=== PATIENT | female | born 1980 | race Caucasian/White ===

== ENCOUNTER → 2017-10-19 | Outpatient (CLI) | payer OTHER ==
[~2017-10-19] MED LIST: ALBU.083IS INH; BENTYL10 MG PO; BENZ100A PO; BUPR100ER PO; CRANBERRY250 MG PO; DIVA250EC PO; ESTR2 PO; FLAX PO; FOLATE PO; HYDSUL200 PO; LEVFLO500 PO; LISI20 PO; METTREX2.5 PO; NASACORT10.8 ML; Nortriptyline H25 MG PO; PANT40 PO; PHENA200 PO; PROM25 PO; SIMV10 PO; Zanaflex4 M1 PO; [UNRECOGNIZED DRUG - OTHER] PO
== END | disposition home or self-care (01) ==
LOC: LAB 10:39
DX: J02.9 Acute pharyngitis, unspecified (principal)
CPT/HCPCS: 87081; 87430

== ENCOUNTER 2020-01-01 09:11 | Emergency (ER) | payer OTHER ==
[~2020-01-01] VITALS: Ht 175.3 cm; Wt 145.2 kg
[2020-01-01 09:53] LABS: BASOPHILS ABSOLUTE AUTO 0.08 K/mm3 (0.00-0.23); BASOPHILS PERCENT AUTO 1 % (0-2); EOSINOPHILS ABSOLUTE AUTO 0.51 K/mm3 (0.00-0.68); EOSINOPHILS PERCENT AUTO 6 % (0-6); Hematocrit 42.7 % (33.0-51.0); Hemoglobin 13.9 g/dL (11.5-16.0); IMMATURE GRAN ABSOLUTE AUTO 0.03 K/mm3 (0.00-0.10); IMMATURE GRAN PERCENT AUTO 0 % (0-1); LYMPHOCYTES ABSOLUTE AUTO 2.07 K/mm3 (0.84-5.20); LYMPHOCYTES PERCENT AUTO 25 % (21-46); MONOCYTES ABSOLUTE AUTO 0.58 K/mm3 (0.16-1.47); MONOCYTES PERCENT AUTO 7 % (4-13); Mean Corpuscular HGB Conc 32.6 g/dL (31.5-36.5); Mean Corpuscular Volume 83 fL (80-100); NEUTROPHILS ABSOLUTE AUTO 5.08 K/mm3 (1.96-9.15); NEUTROPHILS PERCENT AUTO 61 % (41-73); RDW Standard Deviation 39.3 fL (35.1-46.3); Red Blood Cell Count 5.15 M/mm3 (3.80-5.20); White Blood Cell Count 8.35 K/mm3 (4.00-11.30)
[2020-01-01 10:03] LABS: Mean Platelet Volume 11.3 fL (9.1-12.4); Platelet Count 165 K/mm3 (150-400)
[2020-01-01 10:14] LABS: Alanine Aminotransfer (ALT/SGP 24 U/L (12-78); Albumin, Blood 3.5 g/dL (3.4-5.0); Alk Phos 69 U/L (50-136); Anion Gap 8 mmol/L (6-16); Aspartate Aminotrans (AST/SGOT 15 U/L (12-37); Bilirubin, Total 0.2 mg/dL (0.1-1.0); Blood Urea Nitrogen 17 mg/dL (8-24); Bun/Creatinine Ratio 16.3 (12.0-20.0); CO2, Blood 26 mmol/L (21-32); Calcium, Blood 8.7 mg/dL (8.5-10.1); Chloride, Blood 104 mmol/L (98-108); Creatinine, Blood 1.04 mg/dL (0.40-1.00); Globulin, Blood 3.5 g/dL (2.2-4.0); Glomerular Filtration Rate >60 (60-); Glucose, Blood 101 mg/dL (70-99); Sodium, Blood 138 mmol/L (136-145)
[2020-01-01 10:16] LABS: Troponin I <0.015 ng/mL (0.000-0.040)
[2020-01-01] MEDS ORDERED: HYDR1TAB94 PO (12:16)
== END 2020-01-01 12:56 | disposition home or self-care (01) ==
LOC: ER 09:11
PROVIDERS: Physician Assistant
DX: R07.9 Chest pain, unspecified (principal); G43.909 Migraine, unspecified, not intractable, without status migrainosus; G47.30 Sleep apnea, unspecified; Z88.2 Allergy status to sulfonamides; Z88.8 Allergy status to other drugs, medicaments and biological substances; Z88.5 Allergy status to narcotic agent; Z79.899 Other long term (current) drug therapy; Z99.89 Dependence on other enabling machines and devices
CPT/HCPCS: 36415; 71046; 80053; 83880; 84484; 85025; 85651; 86140; 93005; 93010; 96374; 96375; 96376; 99285-25; J1885; J2550; J3010

== ENCOUNTER → 2022-04-19 | Outpatient (CLI) | payer OTHER ==
[~2022-04-19] MED LIST changes: +HYDR1TAB94 PO
== END | disposition home or self-care (01) ==
LOC: PLD 07:15 → LAB SHORT 07:15 → LAB 07:15
DX: D17.24 Benign lipomatous neoplasm of skin and subcutaneous tissue of left leg (principal)
CPT/HCPCS: 88305

== ENCOUNTER 2024-03-19 17:40 | Inpatient (IN) | payer OTHER ==
[~2024-03-19] VITALS: Ht 175.3 cm; Wt 159.0 kg
[2024-03-19 18:36] LABS: BASOPHILS ABSOLUTE AUTO 0.11 K/mm3 (0.00-0.23); BASOPHILS PERCENT AUTO 1 % (0-2); EOSINOPHILS ABSOLUTE AUTO 0.71 K/mm3 (0.00-0.68); EOSINOPHILS PERCENT AUTO 7 % (0-6); Hematocrit 45.1 % (33.0-51.0); IMMATURE GRAN ABSOLUTE AUTO 0.02 K/mm3 (0.00-0.10); IMMATURE GRAN PERCENT AUTO 0 % (0-1); LYMPHOCYTES ABSOLUTE AUTO 2.43 K/mm3 (0.84-5.20); LYMPHOCYTES PERCENT AUTO 24 % (21-46); MONOCYTES PERCENT AUTO 6 % (4-13); Mean Corpuscular HGB 27.3 pg (26.0-34.0); Mean Corpuscular HGB Conc 33.3 g/dL (31.5-36.5); Mean Corpuscular Volume 82 fL (80-100); Mean Platelet Volume 11.7 fL (9.1-12.4); NEUTROPHILS ABSOLUTE AUTO 6.36 K/mm3 (1.96-9.15); NEUTROPHILS PERCENT AUTO 62 % (41-73); Platelet Count 263 K/mm3 (150-400); RDW Coefficient Variation 13.5 % (11.7-14.2); RDW Standard Deviation 39.8 fL (35.1-46.3); White Blood Cell Count 10.23 K/mm3 (4.00-11.30)
[2024-03-19 19:04] LABS: Albumin, Blood 3.8 g/dL (3.4-5.0); Bilirubin, Total 0.4 mg/dL (0.1-1.0); Bun/Creatinine Ratio 15.2 (12.0-20.0); Calcium, Blood 9.3 mg/dL (8.5-10.1); Creatinine, Blood 0.99 mg/dL (0.40-1.00); Globulin, Blood 3.9 g/dL (2.2-4.0); Magnesium, Blood 2.1 mg/dL (1.6-2.4); Potassium, Blood 3.6 mmol/L (3.5-5.5); Total Protein, Blood 7.7 g/dL (6.4-8.2)
[2024-03-19] MEDS ORDERED: Ketorolac Tromethamine 30mg Vial IV ONE (23:55)
[2024-03-20] MEDS ORDERED: FentaNYL Citrate 50 MCG/ML 2 ML Injection IV ONE ×2 (01:15→06:00)
[2024-03-20] MEDS ORDERED: Colchicine 0.6 MG TAB PO ONE (02:00)
[2024-03-20] MEDS ORDERED: ATOR40TA PO (02:20)
[2024-03-20] MEDS ORDERED: RIZATRIPTAN10 MG (02:21)
[2024-03-20] MEDS ORDERED: ATEN50 PO (02:22)
[2024-03-20] MEDS ORDERED: Prozac40 MG PO (02:22)
[2024-03-20] MEDS ORDERED: POTA8 PO (02:24)
[2024-03-20] MEDS ORDERED: B-12500 MC2 PO (02:25)
[2024-03-20] MEDS ORDERED: FURO20 PO (02:26)
[2024-03-20] MEDS ORDERED: AMLO10 PO (02:27)
[2024-03-20] MEDS ORDERED: LOSA50 PO (02:30)
[2024-03-20] MEDS ORDERED: COLCHICINE0.6 MG PO (02:32)
[2024-03-20] MEDS ORDERED: STEGLATRO5 MG PO (02:32)
[2024-03-20] MEDS ORDERED: Rizatriptan Benzoate 10 MG / TAB SoluTab PO PRN ×2 (04:40→05:05)
[2024-03-20] MEDS ORDERED: Nortriptyline HCl 25 MG Cap PO PRN (04:40)
[2024-03-20] MEDS ORDERED: TiZANidine HCl 4 MG Tab PO PRN (05:40)
[2024-03-20 06:03] LABS: BASOPHILS ABSOLUTE AUTO 0.11 K/mm3 (0.00-0.23); BASOPHILS PERCENT AUTO 1 % (0-2); EOSINOPHILS ABSOLUTE AUTO 0.72 K/mm3 (0.00-0.68); EOSINOPHILS PERCENT AUTO 8 % (0-6); Hematocrit 44.4 % (33.0-51.0); Hemoglobin 14.9 g/dL (11.5-16.0); IMMATURE GRAN ABSOLUTE AUTO 0.03 K/mm3 (0.00-0.10); IMMATURE GRAN PERCENT AUTO 0 % (0-1); LYMPHOCYTES ABSOLUTE AUTO 3.01 K/mm3 (0.84-5.20); LYMPHOCYTES PERCENT AUTO 34 % (21-46); MONOCYTES PERCENT AUTO 7 % (4-13); Mean Corpuscular HGB 27.6 pg (26.0-34.0); Mean Corpuscular HGB Conc 33.6 g/dL (31.5-36.5); Mean Corpuscular Volume 82 fL (80-100); Mean Platelet Volume 11.9 fL (9.1-12.4); NEUTROPHILS ABSOLUTE AUTO 4.31 K/mm3 (1.96-9.15); NEUTROPHILS PERCENT AUTO 49 % (41-73); Platelet Count 230 K/mm3 (150-400); RDW Coefficient Variation 13.6 % (11.7-14.2); RDW Standard Deviation 40.7 fL (35.1-46.3); Red Blood Cell Count 5.39 M/mm3 (3.80-5.20); White Blood Cell Count 8.78 K/mm3 (4.00-11.30)
[2024-03-20 06:38] LABS: Alanine Aminotransfer (ALT/SGP 49 U/L (12-78); Albumin, Blood 3.7 g/dL (3.4-5.0); Albumin/Globulin Ratio 1.1 (0.8-1.8); Alk Phos 76 U/L (50-136); Anion Gap 9 mmol/L (3-11); Aspartate Aminotrans (AST/SGOT 38 U/L (12-37); Bilirubin, Total 0.7 mg/dL (0.1-1.0); Blood Urea Nitrogen 21 mg/dL (8-24); Bun/Creatinine Ratio 23.3 (12.0-20.0); CHOL/HDL RATIO 3.8; CO2, Blood 28 mmol/L (21-32); Calcium, Blood 8.9 mg/dL (8.5-10.1); Chloride, Blood 108 mmol/L (98-108); Cholesterol 223 mg/dL (50-200); Globulin, Blood 3.4 g/dL (2.2-4.0); Glomerular Filtration Rate 80 (60-); Glucose, Blood 110 mg/dL (70-99); HDL Cholesterol 58 mg/dL (>39); LDL/HDL RATIO 2.3; Low Density Lipoprotein Chol 134 mg/dL (0-110); Potassium, Blood 3.7 mmol/L (3.5-5.5); Sodium, Blood 141 mmol/L (136-145); Total Protein, Blood 7.1 g/dL (6.4-8.2); Triglycerides 157 mg/dL (30-160); Very Low Density Lipoprot Chol 31 mg/dL (6-32)
[2024-03-20] MEDS ORDERED: Enoxaparin 40 MG/0.4 ML SYR SC SCH (09:00)
[2024-03-20] MEDS ORDERED: Misc. Tablet PO SCH (09:00)
[2024-03-20] MEDS ORDERED: Losartan Potassium 50 MG Tab PO SCH (09:00)
[2024-03-20] MEDS ORDERED: Colchicine 0.6 MG TAB PO SCH (09:00)
[2024-03-20] MEDS ORDERED: AmLODIPine Besylate 5 MG Tab PO SCH (09:00)
[2024-03-20] MEDS ORDERED: Atenolol 50 MG Tab PO SCH (09:00)
[2024-03-20] MEDS ORDERED: Pantoprazole Sodium 40 MG Tab PO SCH (09:00)
[2024-03-20] MEDS ORDERED: Cyanocobalamin 500 MCG Tab PO SCH (09:00)
[2024-03-20] MEDS ORDERED: Divalproex Sodium 250 MG TABLET.DR PO SCH (09:00)
[2024-03-20] MEDS ORDERED: FLUoxetine HCL 20 MG CAP PO SCH (09:00)
[2024-03-20 09:10] VITALS: BP 144/101
[2024-03-20] MEDS ORDERED: Acetaminophen 325 MG TABLET PO PRN (09:35)
[2024-03-20] MEDS ORDERED: OxyCODONE HCL 5 MG TAB PO PRN (10:35)
--- NOTE | 2024-03-20 10:36 | NUR ---
VERBAL FROM DR HALL TO ORDER OXYCODONE 5MG Q 6 PRN FOR MOD PAIN.
[2024-03-20 11:28] VITALS: BP 90/52
[2024-03-20 11:34] VITALS: BP 87/54
[2024-03-20 12:02] VITALS: BP 102/49
--- NOTE | 2024-03-20 12:07 | NUR ---
1128- THIS RN CALLED DR. HALL AND NOTIFIED HER OF PT'S HR AVERAGE OF 45. RN ALSO NOTIFIED HER OF PT'S BP=90/52. TELE CALLED WHILE ON THE PHONE WITH AND NOTIFIED US THAT PT'S AVG WAS 38-44 FOR THE PAST 2 MINS. RN NOTIFIED MD OF THE AM MEDS THAT HAD BEEN ADMINISTERED. MED CHANGES WERE MADE. PT IS ASYMPTOMATIC. PT FEELS "TIRED", BUT STATES SHE HASN'T SLEPT IN 24 HRS. PT WAS ALSO COMAPLINING OF TIREDNESS AT ADMISSION WHEN PV=426/101. SAID SHE WOULD DISCUSS FURTHER IN ROUNDS WITH DOCS.
[2024-03-20 15:28] VITALS: BP 114/83
--- NOTE | 2024-03-20 18:23 | NUR ---
1819- NOTIFIED DR. HALL THAT PT'S HOME DOSE OF ATENOLOL IS 50MG BID AND PT HAD ORDERED AND RECEIVED 100MG THIS MORNING. ALREADY AWARE.
--- NOTE | 2024-03-20 18:31 | NUR ---
SUMMARY- PT AAOX4. IND IN ROOM. CHEST PAIN PERSISTENT; RN NOT ABLE TO ADMINISTER ANY OXY THIS SHIFT DUE TO PT'S LOW BP AND PULSE. PT UNDERSTANDS AND AGREEABLE TO TYLENOL FOR PAIN. NO OTHER ACUTE EVENTS. PT ON RA. PT ABLE TO SLEEP THIS SHIFT INTERMITTENTLY, DESPITE THE CHEST PAIN. PT COOPERATIVE WITH CARE.
[2024-03-20 19:34] VITALS: BP 131/86
[2024-03-20] MEDS ORDERED: Atorvastatin 40 MG Tab PO SCH (21:00)
[2024-03-21] VITALS (7 sets, daily range): BP systolic 84–140; BP diastolic 52–71
--- NOTE | 2024-03-21 06:00 | NUR ---
SHIFT SUMMARY: PATIENT FULLY ORIENTED, COOPERATIVE. NPO AFTER MIDNIGHT FOR STRESS TEST. PAIN BUT DUE TO BRADYCARDIA REFUSED OXYCODONE. SLEPT ON HOME CPAP. SLEPT WELL THROUGH NIGHT. ABLE TO AMBULATE TO BATHROOM.
[2024-03-21] MEDS ORDERED: Losartan Potassium 50 MG Tab PO SCH (09:00)
[2024-03-21] MEDS ORDERED: AmLODIPine Besylate 5 MG Tab PO SCH ×2 (09:00)
[2024-03-21] MEDS ORDERED: Caffeine Citrated 60 MG/3 ML Vial ONE (10:41)
[2024-03-21] MEDS ORDERED: Regadenoson 0.4 MG/5 ML SYRINGE ONE (10:41)
[2024-03-21] MEDS ORDERED: Ketorolac Tromethamine 30mg Vial IV ONE (14:00)
[2024-03-21] MEDS ORDERED: Isosorbide Mononitrate 60 MG TABCR PO SCH (15:00)
--- NOTE | 2024-03-21 16:24 | NUR ---
SHIFT SUMMARY PT HAD STRESS TEST TODAY. C/O HEADACHE AND BACK PAIN. 2 ROXICODONE + TYLENOL + TORADOL X1 FOR PAIN MANAGEMENT. TELE REMAINS SB IN THE 40S. PT DID HAVE LOW BLOOD PRESSURES THIS AFTERNOON AND IS ASYMPTOMATIC. DR RICHEY NOTIFIED AND PLANS TO PLACE ORDERS. PT INDEP IN ROOM. CALL LIGHT WITHIN REACH.
[2024-03-21] MEDS ORDERED: Pantoprazole Sodium 40 MG Tab PO SCH (16:30)
[2024-03-21] MEDS ORDERED: Lactated Ringer's 1,000 ML IV SCH (16:45)
[2024-03-21] MEDS ORDERED: Ketorolac Tromethamine 15mg Vial IV PRN (17:25)
--- NOTE | 2024-03-21 18:44 | NUR ---
NOTIFIED DR. RICHEY OF VS POST FLUID BOLUS. ORDER FOR ADDITIONAL 500CC LR BOLUS.
[2024-03-21] MEDS ORDERED: Lactated Ringer's 500 ML IV ONE (18:45)
[2024-03-22] MEDS ORDERED: Ketorolac Tromethamine 15mg Vial IV PRN (05:40)
--- NOTE | 2024-03-22 06:16 | NUR ---
SHIFT SUMMARY: PATIENT FULLY ORIENTED, COOPERATIVE. COMPLAINED OF CHEST AND BACK PAIN, RESOLVED BY ROXICODONE PRN. PATIENT SLEPT MODERATELY WELL THROUGH NIGHT. HEART RATE IN THE 40S AND 50S ON TELE.
[2024-03-22 07:12] VITALS: BP 133/64
[2024-03-22 15:23] VITALS: BP 118/79
--- NOTE | 2024-03-22 17:50 | NUR ---
SHIFT SUMMARY PT CONT TO C/O PAIN TO CHEST AND BACK. PT HAS BEEN GIVEN TORADOL X2 THIS SHIFT WITH EFFECTIVENESS. PT HAS A AORTIC CTA THIS SHFIT TO R/O DISSECTION WITH NO ACUTE FINDINGS. PT REMAINS INDEPENDENT IN ROOM.
[2024-03-22 18:42] VITALS: BP 118/71
[2024-03-22 19:25] VITALS: BP 133/86
[2024-03-22] MEDS ORDERED: Colchicine 0.6 MG TAB PO SCH (21:00)
[2024-03-23 03:44] VITALS: BP 131/74
[2024-03-23 04:51] LABS: BASOPHILS ABSOLUTE AUTO 0.07 K/mm3 (0.00-0.23); BASOPHILS PERCENT AUTO 1 % (0-2); EOSINOPHILS ABSOLUTE AUTO 0.48 K/mm3 (0.00-0.68); EOSINOPHILS PERCENT AUTO 7 % (0-6); Hematocrit 41.1 % (33.0-51.0); Hemoglobin 13.6 g/dL (11.5-16.0); IMMATURE GRAN ABSOLUTE AUTO 0.02 K/mm3 (0.00-0.10); IMMATURE GRAN PERCENT AUTO 0 % (0-1); LYMPHOCYTES ABSOLUTE AUTO 2.45 K/mm3 (0.84-5.20); LYMPHOCYTES PERCENT AUTO 34 % (21-46); MONOCYTES ABSOLUTE AUTO 0.48 K/mm3 (0.16-1.47); MONOCYTES PERCENT AUTO 7 % (4-13); Mean Corpuscular HGB 27.5 pg (26.0-34.0); Mean Corpuscular HGB Conc 33.1 g/dL (31.5-36.5); Mean Corpuscular Volume 83 fL (80-100); Mean Platelet Volume 12.1 fL (9.1-12.4); NEUTROPHILS ABSOLUTE AUTO 3.71 K/mm3 (1.96-9.15); NEUTROPHILS PERCENT AUTO 51 % (41-73); Platelet Count 196 K/mm3 (150-400); RDW Coefficient Variation 13.7 % (11.7-14.2); RDW Standard Deviation 40.9 fL (35.1-46.3); Red Blood Cell Count 4.94 M/mm3 (3.80-5.20); White Blood Cell Count 7.21 K/mm3 (4.00-11.30)
[2024-03-23 05:34] LABS: Albumin, Blood 3.2 g/dL (3.4-5.0); Bilirubin, Total 0.6 mg/dL (0.1-1.0); Bun/Creatinine Ratio 20.6 (12.0-20.0); Calcium, Blood 8.5 mg/dL (8.5-10.1); Creatinine, Blood 1.02 mg/dL (0.40-1.00); Globulin, Blood 3.2 g/dL (2.2-4.0); Potassium, Blood 4.2 mmol/L (3.5-5.5); Total Protein, Blood 6.4 g/dL (6.4-8.2)
--- NOTE | 2024-03-23 06:37 | NUR ---
SHIFT SUMMARY: PATIENT FULLY ORIENTED, COOPERATIVE, AFFECT IS DEPRESSED. ABLE TO MOVE AROUND ROOM INDEPENDENTLY. REQUIRED KETORLAC AND ROXYCODONE TOGETHER TO MANAGE PAIN.
[2024-03-23 07:52] VITALS: BP 133/73
[2024-03-23] MEDS ORDERED: Indomethacin25 MG PO (12:14)
[2024-03-23] MEDS ORDERED: INDO50 PO (12:19)
--- NOTE | 2024-03-23 13:22 | NUR ---
DISCHARGE SUMMARY PT DC THIS SHIFT. DC INSTRUCTION GONE OVER WITH THE PATIENT AND SHE VERBILIZED UNDERSTAND. PT WAS GIVEN A COPY OF HE DC MEDS D/T SHE USES [facility] IN [place] AND WE WERE NOT SUCCESSFUL IN GETTING AHOLD OF SOMEONE TO GET THE FAX NUMBER. ALTHOUGH WE CALLED AND LEFT A VOICEMAIL STATING WE WERE SENDING PT WITH A COPY. PT LEFT MEDICAL FLOOR VIA WHEELCHAIR ACCOMPANIED BY [facility] [employer] TO PRIVATE VEHICLE.
== END 2024-03-23 13:13 | disposition home or self-care (01) | DRG 546 ==
LOC: ER 17:40 → ERHOLD 17:41 → MEDS 03-20 09:11
PROVIDERS: Family Medicine; Physician Assistant; ADMIT Internal Medicine
PROC: 5A09357 Assistance with Respiratory Ventilation, Less than 24 Consecutive Hours, Continuous Positive Airway Pressure (ICD-10-PCS; principal; 2024-03-22)
DX: M32.9 Systemic lupus erythematosus, unspecified (principal); I24.9 Acute ischemic heart disease, unspecified; I31.9 Disease of pericardium, unspecified; F32.9 Major depressive disorder, single episode, unspecified; I10 Essential (primary) hypertension; E78.5 Hyperlipidemia, unspecified; G43.909 Migraine, unspecified, not intractable, without status migrainosus; G47.33 Obstructive sleep apnea (adult) (pediatric); F17.210 Nicotine dependence, cigarettes, uncomplicated; R00.1 Bradycardia, unspecified; Z88.2 Allergy status to sulfonamides; Z88.8 Allergy status to other drugs, medicaments and biological substances; Z79.899 Other long term (current) drug therapy; Z90.49 Acquired absence of other specified parts of digestive tract; Z98.890 Other specified postprocedural states; Z94.9 Transplanted organ and tissue status, unspecified; Z99.89 Dependence on other enabling machines and devices; Z98.51 Tubal ligation status; Z90.710 Acquired absence of both cervix and uterus; Z90.721 Acquired absence of ovaries, unilateral
CPT/HCPCS: 36415; 71046; 71275; 74175; 76705; 78452; 80053; 80061; 83036; 83735; 84439; 84443; 84484; 84703; 85025; 85379; 85651; 86141; 93005; 93010; 93017; 94762; 96372; 96374; 96375; 96376; 99285-25; A9270; A9500; C8929; G0378; J0706; J1650; J1885; J2785; J3010; J7120; Q9957; Q9967

== ENCOUNTER → 2024-04-02 | Outpatient (CLI) | payer OTHER ==
[~2024-04-02] MED LIST changes: +AMLO10 PO; +ATEN50 PO; +ATOR40TA PO; +B-12500 MC2 PO; +COLCHICINE0.6 MG PO; +FURO20 PO; +INDO50 PO; +Indomethacin25 MG PO; +LOSA50 PO; +POTA8 PO; +Prozac40 MG PO; +RIZATRIPTAN10 MG; +STEGLATRO5 MG PO
[2024-04-02 11:55] LABS: BASOPHILS PERCENT AUTO 2 % (0-2); EOSINOPHILS ABSOLUTE AUTO 0.49 K/mm3 (0.00-0.68); EOSINOPHILS PERCENT AUTO 7 % (0-6); Hemoglobin 14.4 g/dL (11.5-16.0); IMMATURE GRAN ABSOLUTE AUTO 0.02 K/mm3 (0.00-0.10); IMMATURE GRAN PERCENT AUTO 0 % (0-1); LYMPHOCYTES ABSOLUTE AUTO 1.96 K/mm3 (0.84-5.20); LYMPHOCYTES PERCENT AUTO 29 % (21-46); MONOCYTES ABSOLUTE AUTO 0.46 K/mm3 (0.16-1.47); MONOCYTES PERCENT AUTO 7 % (4-13); Mean Corpuscular HGB 27.5 pg (26.0-34.0); Mean Corpuscular HGB Conc 33.5 g/dL (31.5-36.5); Mean Corpuscular Volume 82 fL (80-100); Mean Platelet Volume 12.8 fL (9.1-12.4); NEUTROPHILS ABSOLUTE AUTO 3.77 K/mm3 (1.96-9.15); NEUTROPHILS PERCENT AUTO 55 % (41-73); Platelet Count 208 K/mm3 (150-400); RDW Coefficient Variation 13.2 % (11.7-14.2); RDW Standard Deviation 39.5 fL (35.1-46.3); Red Blood Cell Count 5.24 M/mm3 (3.80-5.20)
[2024-04-02 12:05] LABS: Albumin, Blood 3.7 g/dL (3.4-5.0); Bilirubin, Total 0.5 mg/dL (0.1-1.0); Calcium, Blood 9.4 mg/dL (8.5-10.1); Globulin, Blood 3.6 g/dL (2.2-4.0); Potassium, Blood 4.3 mmol/L (3.5-5.5); Total Protein, Blood 7.3 g/dL (6.4-8.2)
== END ==
LOC: LAB SHORT 09:15 → LAB 09:15
PROVIDERS: Family Medicine
DX: I50.30 Unspecified diastolic (congestive) heart failure (principal)
CPT/HCPCS: 80053; 85025

== ENCOUNTER 2024-07-10 06:38 | Day surgery (SDC) | payer OTHER ==
[~2024-07-10] VITALS: Ht 175.3 cm; Wt 159.0 kg
[2024-07-10] VITALS (7 sets, daily range): BP systolic 112–134; BP diastolic 76–89
[~2024-07-10 06:38] MED LIST changes: +ATEN25 PO; +CLOP75 PO
[2024-07-10] MEDS ORDERED: Verapamil HCL 2.5 MG/ML 2ML Injection ONE (07:02)
[2024-07-10] MEDS ORDERED: NS 1,000 ML IV ONE (07:03)
[2024-07-10] MEDS ORDERED: Heparin Sodium 1000 Units/ML 10ML MDV ONE (07:03)
[2024-07-10] MEDS ORDERED: NS 250 ML IV ONE (07:03)
[2024-07-10] MEDS ORDERED: NS 500 ML IV ONE (07:50)
[2024-07-10] MEDS ORDERED: FentaNYL Citrate 50 MCG/ML 2 ML Injection ONE (07:54)
[2024-07-10] MEDS ORDERED: Midazolam HCl 1MG / ML 2ML Vial ONE (07:54)
--- NOTE | 2024-07-10 10:26 | NUR ---
R WRIST TR BAND REMOVED AND CLOTH DOT DRSG PLACED. NEG BLEEDING OR SWELLING. R WRIST SPLINT REAPPLIED. PT AND MOM VERBALIZED UNDERSTANDING OF WRITTEN AND VERBAL D/C INST. IV REMOVED. PT TAKEN OUT OF THE HRT CENTER VIA W/C.
== END 2024-07-10 10:32 | disposition home or self-care (01) ==
LOC: MHTC 06:38
DX: R07.89 Other chest pain (principal); R94.39 Abnormal result of other cardiovascular function study; M32.9 Systemic lupus erythematosus, unspecified; I10 Essential (primary) hypertension; E78.5 Hyperlipidemia, unspecified; G47.33 Obstructive sleep apnea (adult) (pediatric); E66.01 Morbid (severe) obesity due to excess calories; Z68.43 Body mass index [BMI] 50.0-59.9, adult; Z88.2 Allergy status to sulfonamides; Z88.5 Allergy status to narcotic agent; Z88.8 Allergy status to other drugs, medicaments and biological substances; Z79.899 Other long term (current) drug therapy
CPT/HCPCS: 76937; 93458; 99152; 99153; C1769; C1887; C1894; J1644; J2250; J3010; J7030; J7040; J7050; Q9967

== ENCOUNTER → 2024-08-15 | Outpatient (CLI) | payer OTHER ==
[2024-08-15 14:31] LABS: Alanine Aminotransfer (ALT/SGP 33 U/L (12-78); Albumin, Blood 3.7 g/dL (3.4-5.0); Alk Phos 76 U/L (50-136); Anion Gap 10 mmol/L (3-11); Aspartate Aminotrans (AST/SGOT 16 U/L (12-37); Bilirubin, Total 0.4 mg/dL (0.1-1.0); Blood Urea Nitrogen 20 mg/dL (8-24); Bun/Creatinine Ratio 18.5 (12.0-20.0); CO2, Blood 30 mmol/L (21-32); Calcium, Blood 9.1 mg/dL (8.5-10.1); Chloride, Blood 102 mmol/L (98-108); Cholesterol 157 mg/dL (50-200); Creatinine, Blood 1.08 mg/dL (0.40-1.00); Free Thyroxine 0.89 ng/dL (0.70-1.60); Globulin, Blood 3.7 g/dL (2.2-4.0); Glomerular Filtration Rate 64 (60-); Glucose, Blood 110 mg/dL (70-99); HDL Cholesterol 52 mg/dL (>39); LDL/HDL RATIO 1.4; Low Density Lipoprotein Chol 73 mg/dL (0-110); Potassium, Blood 3.9 mmol/L (3.5-5.5); Sodium, Blood 138 mmol/L (136-145); Total Protein, Blood 7.4 g/dL (6.4-8.2); Triglycerides 162 mg/dL (30-160); Very Low Density Lipoprot Chol 32 mg/dL (6-32)
[2024-08-16 22:31] LABS: THYROID PEROXIDASE (TPO) AB 0.3 IU/mL (0.0-9.0)
== END | disposition home or self-care (01) ==
LOC: LAB SHORT 10:50 → LAB 10:50
PROVIDERS: Family Medicine
DX: E03.8 Other specified hypothyroidism (principal); I20.89 Other forms of angina pectoris; I50.30 Unspecified diastolic (congestive) heart failure
CPT/HCPCS: 80053; 80061; 84439; 84443; 86376

== ENCOUNTER → 2024-11-19 | Outpatient (CLI) | payer OTHER ==
[2024-11-19 16:43] LABS: Albumin, Blood 3.6 g/dL (3.4-5.0); Albumin/Globulin Ratio 0.9 (0.8-1.8); Bilirubin, Total 0.3 mg/dL (0.1-1.0); Bun/Creatinine Ratio 12.4 (12.0-20.0); Calcium, Blood 9.4 mg/dL (8.5-10.1); Creatinine, Blood 0.97 mg/dL (0.40-1.00); Globulin, Blood 3.8 g/dL (2.2-4.0); Potassium, Blood 3.4 mmol/L (3.5-5.5); Total Protein, Blood 7.4 g/dL (6.4-8.2)
== END ==
LOC: LAB SHORT 15:14 → LAB 15:14
PROVIDERS: Family Medicine
DX: I10 Essential (primary) hypertension (principal); R73.03 Prediabetes
CPT/HCPCS: 80053; 83036; 83735

== ENCOUNTER 2025-03-28 15:51 | Emergency (ER) | payer OTHER ==
[~2025-03-28] VITALS: Ht 175.3 cm; Wt 157.8 kg
[2025-03-28 16:52] LABS: BASOPHILS ABSOLUTE AUTO 0.07 K/mm3 (0.00-0.23); BASOPHILS PERCENT AUTO 1 % (0-2); EOSINOPHILS ABSOLUTE AUTO 0.55 K/mm3 (0.00-0.68); EOSINOPHILS PERCENT AUTO 6 % (0-6); Hematocrit 43.5 % (33.0-51.0); Hemoglobin 14.7 g/dL (11.5-16.0); IMMATURE GRAN ABSOLUTE AUTO 0.03 K/mm3 (0.00-0.10); IMMATURE GRAN PERCENT AUTO 0 % (0-1); LYMPHOCYTES ABSOLUTE AUTO 1.95 K/mm3 (0.84-5.20); LYMPHOCYTES PERCENT AUTO 21 % (21-46); MONOCYTES ABSOLUTE AUTO 0.54 K/mm3 (0.16-1.47); MONOCYTES PERCENT AUTO 6 % (4-13); Mean Corpuscular HGB Conc 33.8 g/dL (31.5-36.5); Mean Corpuscular Volume 81 fL (80-100); NEUTROPHILS ABSOLUTE AUTO 6.37 K/mm3 (1.96-9.15); NEUTROPHILS PERCENT AUTO 67 % (41-73); NRBC ABSOLUTE 0.00 K/mm3 (0.00-0.02); NRBC Auto 0.0 /100 WBC (0.0-0.2); Platelet Count 261 K/mm3 (150-400); RDW Coefficient Variation 12.9 % (11.7-14.2); RDW Standard Deviation 37.7 fL (35.1-46.3)
[2025-03-28 17:17] LABS: Alanine Aminotransfer (ALT/SGP 20.0 U/L (12-78); Albumin, Blood 3.5 g/dL (3.4-5.0); Albumin/Globulin Ratio 0.9 (0.8-1.8); Anion Gap 11.0 mmol/L (3-11); Aspartate Aminotrans (AST/SGOT 16.0 U/L (12-37); Bilirubin, Total 0.4 mg/dL (0.1-1.0); Blood Urea Nitrogen 12.0 mg/dL (8-24); CO2, Blood 26.0 mmol/L (21-32); Calcium, Blood 9.2 mg/dL (8.5-10.1); Chloride, Blood 103.0 mmol/L (98-108); Creatinine, Blood 0.91 mg/dL (0.40-1.00); Globulin, Blood 3.8 g/dL (2.2-4.0); Glucose, Blood 117.0 mg/dL (70-99); Potassium, Blood 3.9 mmol/L (3.5-5.5); Sodium, Blood 136.0 mmol/L (136-145); Total Protein, Blood 7.3 g/dL (6.4-8.2)
[2025-03-28] MEDS ORDERED: PRED10 PO (21:18)
[2025-03-28 22:10] VITALS: BP 135/104
== END 2025-03-28 22:10 | disposition home or self-care (01) ==
LOC: ER 15:51
PROVIDERS: Emergency Medicine
DX: R07.89 Other chest pain (principal); E03.9 Hypothyroidism, unspecified; G47.33 Obstructive sleep apnea (adult) (pediatric); I10 Essential (primary) hypertension; Z79.899 Other long term (current) drug therapy; Z88.2 Allergy status to sulfonamides; Z88.5 Allergy status to narcotic agent; Z88.8 Allergy status to other drugs, medicaments and biological substances
CPT/HCPCS: 71045; 80053; 84484; 85025; 93005; 93010; 99285-25